=== PATIENT | female | born 1985 | race Caucasian/White ===

== ENCOUNTER 2024-06-26 08:43 | Inpatient (IN) | payer OTHER, SELFPAY ==
[2024-06-26] VITALS (12 sets, daily range): BP systolic 125–158; BP diastolic 67–93; PULSE 64–86; TEMP 36.9
--- NOTE | 2024-06-26 09:09 | PM.OBPRCVD ---
Procedure Intrapartal events: None Induction method: none Delivery augmentation: rupture of membranes Delivery monitor: external FHT and external uterine Route of delivery: Episiotomy Description: none L&D Laceration Description: none Estimated blood loss (mL): 200 Disposition: floor Delivery date: 06/26/24 presentation: vertex cord description: 3 Vessels and Nuchal Cord
[2024-06-26] MEDS: OXYTOCIN/0.9 % SODIUM CHLORIDE 20 UNITS/1,000 ML PLAST..BAG 125 UNIT IV (09:10)
[2024-06-26 09:44] LABS: Hematocrit 32.2 % (36.0-48.0); Hemoglobin 10.5 g/dL (12.0-16.0); Mean Corpuscular HGB Conc 32.6 g/dL (29.9-35.2); Mean Corpuscular Hemoglobin 29.6 pg (26.7-34.0); Mean Corpuscular Volume 90.7 fL (81.0-99.0); Mean Platelet Volume 9.8 fL (9.5-13.5); Platelet Count 312 10^3/uL (150-450); Red Blood Count 3.55 10^6/uL (4.20-5.40); Red Cell Distribution Width 13.3 % (11.0-15.0); White Blood Count 18.1 10^3/uL (4.0-11.0)
[2024-06-26 09:58] LABS: Amphetamine Screen Urine NEGATIVE (NEGATIVE); Barbiturates Screen Urine NEGATIVE (NEGATIVE); Benzodiazepines Screen Urine NEGATIVE (NEGATIVE); Buprenorphine Screen Urine NEGATIVE (NEGATIVE); Cannabinoid Screen Urine NEGATIVE (NEGATIVE); Cocaine Screen Urine NEGATIVE (NEGATIVE); Methadone Screen Urine NEGATIVE (NEGATIVE); Methamphetamines Screen Urine POSITIVE (NEGATIVE); Opiate Screen Urine NEGATIVE (NEGATIVE); Oxycodone Screen Urine NEGATIVE (NEGATIVE); Phencyclidine Screen Urine NEGATIVE (NEGATIVE); Tricyclic Antidepressant Urine NEGATIVE (NEGATIVE)
[2024-06-26] MEDS: IBUPROFEN 600 MG TABLET PO (10:23)
--- NOTE | 2024-06-26 15:32 | SWNOTE1 ---
SW consulted due to drug use. Pt was positive for Methamphetamines. SW spoke to nurse prior to going in to room. Pt does have 3 other children, oldest is 21 then 2 other younger ones, no custody of them. Pt did admit to Meth use to nurse and said she was on Subutex as well but ran out at the end of May. Baby is 4 pounds 11 ounces and pt delivered within 10 mins of arriving to hospital. Pt spoke of going to half-way at some point as she had missed her visit. SW met with pt to discuss positive drug screen. Pt and her live at home, no other children in the home. Pt has a 21 year old and he lives with his girlfriend. Pt has a 7 year old son who was taken from her at the age of 4 and placed with her aunt. She does have contact with him every other weekend and can see him at other times as well. Pt also has a 4 year old daughter, she is placed with pt's cousin. Pt does not have any contact and she has not seen her in 2 years. Pt does voice frustrations with CPS and stated she was trying everything and following there guidelines, but never got more than a supervised visit. SW did ask pt about her drug use. Pt does admit to using methamphetamine. Pt voiced that she thinks she only used about 4 times. She stated when she ran out of her subutex, she then used. She voiced that she was surprised she was positive, as the last time she used was about a week or week and half ago, per patient. Pt voiced she goes to [facility] in [place] and that is where she is prescribed Subutex. She stated she had transport issues and could not get to follow up and that is why she ran out. She stated she has reached out to jobs and family services to get assistance with getting there car fixed. She does use her insurance for transport but that does not always work. Pt does admit to being an addict. She stated she knows that she should not use and then she still does it. Pt also voiced she missed an appointment due to being in half-way for not paying child support. She was there for 18 days. SW asked what programs she has been involved in to get clean. She stated she was at [facility] in [facility], and now goes to [facility] in [place]. Her has an appointment in [place] at [facility] tomorrow. She hda spoke to the doctor about being discharged tomorrow so she can make an appointment for herself. BOOKER did advise pt that SW has to make a referral to [facility] and they will likely be coming tomorrow to see her and discuss safe plan of discharge. Pt voiced understanding. Again she voiced not good experiences with CPS. SW advised pt that CPS will be involved to help her and the baby and make sure baby is safe. She voiced understanding. SW asked pt if she or has a person that baby can safely be discharged with if [facility] requires that? Pt voiced she spoke to her mother in law this morning, but her mother in law was not sure. SW advised pt to think about, and that SW was not 100%sure that would happen, but to be prepared. At this time pt has no further questions. Pt did voice some concerns about losing baby, SW assured pt that CPS will guide us through the process. Pt did call [facility] and will call to schedule appointment, but has no ride there. SW to provide phone number for trips. Report called to [facility]. HIPAA form sent to [facility]. [facility] clerical warehouse worker is familiar with pt's name and knew she would be delivering soon. She voiced she will send to delivery room supervisor and let us know. BOOKER also provided pt with the phone number for [facility].
--- NOTE | 2024-06-26 16:01 | PC.NURSE ---
0855 - Pt arrives per WC riding on right hip blowing with CTX's. & [id number] accompany. Pt appears with a glazed expression & does not focus to answer questions or follow commands to move to the bed. 0856 - Pt finally gets in bed & pants & underwear able to be removed. Pt continues to be moving all over the bed & requiring marsh direction to get her attention. Multiple RN's to room to prepare for delivery. Unable to get history information at this time & no written history available as pt sees providers in [place]. states is due 07/21 which makes her 36+3 days GA. Unsure of membrane status.
[2024-06-27] MEDS: IBUPROFEN 600 MG TABLET PO ×2 (00:35→08:00)
[2024-06-27 00:57] VITALS: BP 135/72; PULSE 65
[2024-06-27] MEDS: ACETAMINOPHEN 325 MG TABLET 650 MG PO (01:54)
[2024-06-27 06:57] LABS: Basophils Absolute Auto 0.1 10^3/uL (0.0-0.1); Basophils Percent Auto 0.4 % (0.2-2.0); Eosinophils Absolute Auto 0.1 10^3/uL (0.0-0.7); Hematocrit 29.6 % (36.0-48.0); Hemoglobin 9.4 g/dL (12.0-16.0); Immature Granulocytes Pct Auto 1.7 % (0.0-0.5); Lymphocytes Absolute Auto 3.6 10^3/uL (1.2-3.8); Lymphocytes Percent Auto 31.2 % (20.5-60.0); Mean Corpuscular HGB Conc 31.8 g/dL (29.9-35.2); Mean Corpuscular Hemoglobin 29.4 pg (26.7-34.0); Mean Corpuscular Volume 92.5 fL (81.0-99.0); Mean Platelet Volume 9.7 fL (9.5-13.5); Monocytes Absolute Auto 0.6 10^3/uL (0.3-0.8); Monocytes Percent Auto 4.8 % (1.7-12.0); Neutrophils Percent Auto 60.9 % (43.0-75.0); Platelet Count 270 10^3/uL (150-450); Red Cell Distribution Width 13.8 % (11.0-15.0); White Blood Count 11.6 10^3/uL (4.0-11.0)
[2024-06-27 08:02] VITALS: BP 136/81; PULSE 64; TEMP 36.8
[2024-06-27] MEDS: DOCUSATE SODIUM 100 MG CAPSULE PO (09:02)
--- NOTE | 2024-06-27 09:12 | PM.OBPN ---
OB - PN: Subj Subjective Patient comments: no complaints and pain well controlled [place] status: doing well Exam Constitutional Vital Signs, click to edit/add: Last Vital Signs Temp 98.3 F 06/27/24 08:02 Pulse 64 06/27/24 08:02 Resp 16 06/27/24 08:02 BP 136/81 06/27/24 08:02 O2 Del Method Room Air 06/26/24 16:20 Documenting provider has reviewed patient's vital signs: yes Common normals: no apparent distress Respiratory Common normals: normal respiratory effort and clear to auscultation bilaterally Cardio Common normals: regular rate and regular rhythm GI Common normals: Normal to inspection, nondistended, normoactive bowel sounds present Extremity Common normals: no calf tenderness Results Labs Labs: Short CBC 06/26/24 06/27/24 Range/Units 09:08 06:38 WBC 18.1 H 11.6 H (4.0-11.0) 10^3/uL Hgb 10.5 L 9.4 L (12.0-16.0) g/dL Hct 32.2 L 29.6 L (36.0-48.0) % Plt Count 312 270 (150-450) 10^3/uL OB - PN: A/P Plan - Vaginal Delivery day: 1 Plan: routine care, discharge home and follow up 6 weeks Time Spent with Patient Time: Total time spent is greater than 50% in coordination of care (as documented) at patient's floor/unit and/or counseling patient: Total time spent with greater than 50% in coordination of care (as documented) at patient's floor/unit and/or counseling patient: less than 15 minutes
[2024-06-28 16:10] LABS: Amphetamines Negative (Cutoff=500)
== END 2024-06-27 10:00 | disposition home or self-care (01) | DRG 806 ==
PROVIDERS: Admitting Provider Obstetrics & Gynecology; Visit Provider Obstetrics & Gynecology
DX: O60.14X0 Preterm labor third trimester with preterm delivery third trimester, not applicable or unspecified (principal); O98.42 Viral hepatitis complicating childbirth; Z37.0 Single live birth; O99.324 Drug use complicating childbirth; O62.3 Precipitate labor; Z3A.36 36 weeks gestation of pregnancy; O69.81X0 Labor and delivery complicated by cord around neck, without compression, not applicable or unspecified; F15.10 Other stimulant abuse, uncomplicated; B19.20 Unspecified viral hepatitis C without hepatic coma
CPT/HCPCS: 36415; 51701; 59050; 59410; 80307; 80326; 85025; 85027; 86850; 86900; 86901; 88307